=== PATIENT | male | born 2005 | race Caucasian/White ===

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

== ENCOUNTER → 2025-01-27 | Outpatient (CLI) | payer BC, SELFPAY ==
[2025-01-27 08:56] LABS: Anion Gap 9 (7-16); BUN/Creatinine Ratio 5 Ratio (12-20); Blood Urea Nitrogen < 5 mg/dL (9-23); Calcium 9.5 mg/dL (8.3-10.6); Carbon Dioxide 24.0 mMol/L (20.0-31.0); Chloride 105 mMol/L (98-107); Creatinine (Component) 1.0 mg/dL (0.6-1.3); Glucose 102 mg/dL (74-106); Osmolality,Calculated 272 (275-295); Potassium 4.0 mMol/L (3.4-5.1); Sodium 138 mMol/L (136-145); eGFR > 60 See Note
[2025-02-04 07:09] LABS: Estradiol, Ultrasensitive* 772 pg/mL (< OR = 29); Testosterone, Free,Dialysis 2.0 pg/mL (35.0-155.0); Testosterone, Total, Dialysis 15 ng/dL (250-1100)
== END | disposition home or self-care (01) ==
LOC: COPL 07:13
PROVIDERS: PCP Nurse Practitioner Family
DX: E34.9 Endocrine disorder, unspecified (principal)
CPT/HCPCS: 36415; 80048; 82670; 84402; 84403

== ENCOUNTER → 2025-04-21 | Outpatient (CLI) | payer BC, MEDICAID, SELFPAY ==
[2025-04-25 06:46] LABS: Estradiol, Ultrasensitive* 94 pg/mL (< OR = 29)
== END | disposition home or self-care (01) ==
LOC: COPL 09:49
PROVIDERS: PCP Family Medicine; Referring Provider Family Medicine; Visit Provider Family Medicine
DX: E34.9 Endocrine disorder, unspecified (principal)
CPT/HCPCS: 36415; 82670